=== PATIENT | female | born 1950 | race Caucasian/White ===

== ENCOUNTER 2020-09-04 10:15 | Outpatient (RCR) | payer MEDICARE, SELFPAY ==
[2020-06-14 14:20] VITALS: BP_SYST 90
--- NOTE | 2020-06-14 16:38 | PTOPEVAL ---
Thank you for referring Pilar Knapp to [facility]. Please review, sign, date and return this plan of care LUI. Pt referred to therapy due to s/p left shoulder surgery. She demonstrates impairments consistent with post surgery. She requires additional skilled therapy 2x/wk x 4 wk to address impairments and progress towards goals. I agree with and certify that the following plan of care is medically necessary. Referring Physician Date Referring Provider: Dr. Wes Stacy MD *PT Outpatient Evaluation Start: 06/14/20 14:20 Freq: Status: Active Protocol: Document 06/14/20 14:20 BLAIR (Rec: 06/14/20 15:05 CAP [id number]) Therapy Assessment Status Assessment Status Assessment Status Evaluation Outpatient Past Medical History Past Medical History Source of Past Medical History Patient,Recalled from Previous Visit, Confirmed with Patient /Family Cardiovascular History Hx Hypertension Yes Musculoskeletal History Hx Orthopedic Surgery Yes: left reverse TSA 05/23/20, Hx Other Musculoskeletal Disorders Yes: s/p left shoulder debridement 01/19 Psychosocial History Hx Anxiety Yes Hx Depression Yes Other History Hx Cancer Yes: basal cell Evaluation Information Problem Diagnosis reverse total shoulder arthroplasty-left Onset 2 years Cause fall Additional Evaluation Detail torn RTC, fractured shoulder, dislocated shoulder as a result of a fall 2 years ago. She has had 3 shoulder surgery : s/p ORIF and RTC repair, 1 year later manipulation, then tissue debridement 3 months later Subjective Information She is wearing the shoulder Query Text:As Reported By Patient/ sling most of the day, but has Family been removing the sling towards the end of the day for the past week. Reports increased numbness of right hand due to pressure of sling. She is able to preform her ADL 's indep. She applies the ice daily and will sleep with the ice. She is sleeping on her back due to prefers to sleep on left side. She is not wearing the sling at night. She reports increase
[2020-07-06 11:02] VITALS: BP_SYST 130
--- NOTE | 2020-07-06 14:29 | PTOPEVAL ---
Thank you for referring Pilar Kanpp to [facility]. Please review, sign, date and return this plan of care LUI. Pt has received 7 therapy visits to address left shoulder impairments consistent with shoulder surgery. She is not consistently wearing her sling with daily activities. She is progressing with shoulder range, strength, pain and UE function. Cont PT 2x/wk x 8 wk. I agree with and certify that the following plan of care is medically necessary. Referring Physician Date Referring Provider: Dr. Wes Stacy MD Physical therapy progress note *PT Outpatient Evaluation Start: 06/14/20 14:20 Freq: Status: Active Protocol: Document 07/06/20 11:02 CAP (Rec: 07/06/20 11:30 CAP [id number]) Therapy Assessment Status Assessment Status Assessment Status Re-evaluation Outpatient Past Medical History Past Medical History Source of Past Medical History Patient,Recalled from Previous Visit, Confirmed with Patient /Family Cardiovascular History Hx Hypertension Yes Musculoskeletal History Hx Orthopedic Surgery Yes: left reverse TSA 05/23/20, Hx Other Musculoskeletal Disorders Yes: s/p left shoulder debridement 01/19 Psychosocial History Hx Anxiety Yes Hx Depression Yes Other History Hx Cancer Yes: basal cell Evaluation Information Problem Diagnosis reverse total shoulder arthroplasty-left Onset 2 years Cause fall Additional Evaluation Detail torn RTC, fractured shoulder, dislocated shoulder as a result of a fall 2 years ago. She has had 3 shoulder surgery : s/p ORIF and RTC repair, 1 year later manipulation, then tissue debridement 3 months later Subjective Information Pt arrived to therapy without Query Text:As Reported By Patient/ the sling. She has her MD appt Family on 07/07/20. Reports cont pain with increased activities of director advanced. She performed 50% of the chores without the sling. She reports increased pain of left shoulder with increased activites of daily activities. She is able to preform her ADL 's indep. She is not wearing the sling at night.
--- NOTE | 2020-07-18 09:05 | PCPTNOTE ---
Patient called & cancelled scheduled appointment this date due to not feeling well.
[2020-08-08 09:54] VITALS: BP_SYST 150
--- NOTE | 2020-08-08 13:26 | PTOPEVAL ---
Thank you for referring Pilar Knapp to [facility].? The patient is scheduled to be seen for therapy? 2 x/week for 8 weeks. Please review, sign, date and return this plan of care LUI. I agree with and certify that the following plan of care is medically necessary. Referring Physician Date Referring Provider: Dr. Wes Stacy MD Physical Therapy Progress Note *PT Outpatient Evaluation Start: 06/14/20 14:20 Freq: Status: Active Protocol: Document 08/08/20 09:54 BLAIR (Rec: 08/08/20 10:55 CAP [id number]) Therapy Assessment Status Assessment Status Assessment Status Re-evaluation Evaluation Information Problem Diagnosis reverse total shoulder arthroplasty-left Onset 2 years Cause fall Additional Evaluation Detail torn RTC, fractured shoulder, dislocated shoulder as a result of a fall 2 years ago. She has had 3 shoulder surgery : s/p ORIF and RTC repair, 1 year later manipulation, then tissue debridement 3 months later Subjective Information She reports she is using the Query Text:As Reported By Patient/ arm more with household of Family cleaning, laundry and vacuuming. Increased yardwork of raking and gardening chores . She cont to have difficulty reaching the left arm behind her back for ADL's. She is able to carry only light objects with left UE. Reports difficulty with sleeping due to pain in the shoulder. She uses ice, heat, TENS unit for management of her pain. Her next MD appt 08/18/20 Pain Assessment Timing of Pain Assessment Timing of Pain Assessment Re-assessment Pain Scale Pain Scale Used Numeric (1 - 10) Self Report Pain Assessment Left Shoulder(s) Reported Pain Level 6 Pain Description Aching,Dull Pain Frequency Continuous Lowest Pain Intensity 6 Greatest Pain Intensity 9 Pain Aggravating Factors ADL's,Exercise/Activity, Lifting,Prolonged Position Pain Behaviors None Pain Relief Interventions Used By Exercise,Ice,TENS Patient Pain Score Pain S
--- NOTE | 2020-08-30 10:05 | PCPTNOTE ---
Patient called & cancelled scheduled appointment this date due to sick dog.
--- NOTE | 2020-09-12 12:23 | PCPTNOTE ---
This treatment is being continued on visit number 20 to [id number]. Please see documentation on both accounts to view progress. Completed interventions, outcomes, and problems have been marked as Inactive to facilitate the copying of the Care plan routine for recurring accounts.
== END 2020-09-08 13:31 | disposition home or self-care (01) ==
LOC: ANHPT 10:15
PROVIDERS: PCP Internal Medicine
DX: Z47.31 Aftercare following explantation of shoulder joint prosthesis (principal)
CPT/HCPCS: 97110; 97140; 97162

== ENCOUNTER 2020-10-06 09:00 | Outpatient (RCR) | payer MEDICARE, SELFPAY ==
[2020-09-08 13:31] VITALS: BP_SYST 150
--- NOTE | 2020-09-12 12:29 | PCPTNOTE ---
The treatment documented on this account is a continuation of the treatment documented on visit number 20 from [id number]. Please see documentation on both accounts to view progress. The Plan of Care has been transitioned and updated within the new V#. I have addressed and agree with the discipline specific Problems, Interventions, and Goals for the current certification period. Completed interventions, outcomes, and problems have been marked as Inactive to facilitate the copying of the Care plan routine for recurring accounts.
[2020-09-13 08:02] VITALS: BP_SYST 152
--- NOTE | 2020-09-13 09:18 | PTOPEVAL ---
Thank you for referring Pilar Knapp to [facility].? Pt is making slow progress with left shoulder range and strength. She cont to require additional skilled therapy services to address UE impairments and improve function. The patient is scheduled to be seen for therapy? 2 x/week for 8 weeks. Please review, sign, date and return this plan of care LUI. I agree with and certify that the following plan of care is medically necessary. Referring Physician Date Referring Provider: Dr Wes Stacy MD *PT Outpatient Evaluation Start: 09/12/20 12:23 Freq: Status: Active Protocol: Document 09/13/20 08:02 BLAIR (Rec: 09/13/20 08:58 [facility] [id number]) Therapy Assessment Status Assessment Status Assessment Status Re-evaluation Evaluation Information Problem Diagnosis reverse total shoulder arthroplasty-left Onset 2 years Cause fall Additional Evaluation Detail torn RTC, fractured shoulder, dislocated shoulder as a result of a fall 2 years ago. She has had 3 shoulder surgery : s/p ORIF and RTC repair, 1 year later manipulation, then tissue debridement 3 months later Subjective Information She reports continued pain of Query Text:As Reported By Patient/ the left shoulder with Family increased use of arm with daily activities. She reports cont difficulty and tightness sensation of left upper arm with reaching act. She is able to carry only light objects with left UE. She has difficulty with yardwork. Reports difficulty with sleeping due to pain in the shoulder. Pain Assessment Timing of Pain Assessment Timing of Pain Assessment Assessment Pain Scale Pain Scale Used Numeric (1 - 10) Self Report Pain Assessment Left Shoulder(s) Reported Pain Level 2 Pain Description Tightness Pain Frequency Continuous Lowest Pain Intensity 2 Greatest Pain Intensity 8 Pain Aggravating Factors ADL's,Exercise/Activity, Lifting Pain Relief Interventions Used By Heat,Ice Patient Pain Score Pain Score 2: Self Report Upper Extremity Range of Motion Scapular/ Shoulder Range of Motion Left Shoulder Flexion - Active
--- NOTE | 2020-10-02 07:26 | PCPTNOTE ---
Patient called & cancelled scheduled appointment this date due to being sick.
--- NOTE | 2020-10-06 10:46 | PTOPEVAL ---
PHYSICAL THERAPY DISCHARGE SUMMARY Thank you for referring Pilar Knapp to [facility].? The patient has been seen for 24 therapy?visits for her left shoulder. Please review, sign, date and return this plan of care LUI. I agree with and certify that the following plan of care is medically necessary. Referring Physician Date Attending Provider: Dr. Wes Stacy MD *PT Outpatient Evaluation Start: 09/12/20 12:23 Freq: Status: Active Protocol: Document 10/06/20 10:37 MLV (Rec: 10/06/20 10:46 MLV [id number]) Discharge Discharge Information Problem Subjective Information Patient reports seeing her Query Text:As Reported By Patient/ doctor and was told to stop Family therapy after today's visit. Patient states the MD is happy with her motion and strength and feels her pain may be related to the therapy. Patient is to continue her exercises on her own at home. Patient denies trouble with her current home program. Pain Assessment Timing of Pain Assessment Timing of Pain Assessment Pre-Treatment Pain Scale Pain Scale Used Numeric (1 - 10) Self Report Pain Assessment Left Shoulder(s) Reported Pain Level 3 Pain Description Cramping Pain Frequency Chronic Pain Score Pain Score 3: Self Report Interventions Used Interventions Used By Clinicians Exercise,Ultrasound Pain Relief Interventions Used By Exercise,Heat Patient Upper Extremity Range of Motion General Upper Extremity Range of Motion Gross Upper Extremity Range of Motion left shoulder active motions: Comments flexion 156, abduction 166, ER 56 and IR 75 degrees. Patient is aware of attempting to control scapular movement with elevation, although still having some compensation of movement Upper Extremity Muscle Strength Testing General Upper Extremity Strength Gross Upper Extremity Strength Comments left shoulder ER 4-/5, IR 4/5, elevation 4/5 (isometric testing) Palpation Assessment Palpation Palpation soft tissue tightness at left shoulder has decreased but still present (minimal) Rehab Teaching Rehab Teaching Teaching Topic Rehab Teaching Topic Components Home Program As Pertains To Pain M
== END 2020-10-06 12:10 | disposition home or self-care (01) ==
LOC: ANHPT 09:00
PROVIDERS: PCP Internal Medicine
DX: Z47.89 Encounter for other orthopedic aftercare (principal); Z96.612 Presence of left artificial shoulder joint
CPT/HCPCS: 97035; 97110; 97140

== ENCOUNTER → 2021-08-23 11:42 | Outpatient (CLI) | payer MEDICARE, SELFPAY ==
--- NOTE | ~2021-08-23 | MR_ITS ---
EXAMINATION: MR shoulder LT wo con DATE: 08/23/2021 12:27 INDICATION: Left shoulder pain post total shoulder arthroplasty TECHNIQUE: Magnetic resonance imaging (MRI) of the left shoulder was performed without intravenous co ntrast. Sequences included axial PD-weighted FS FSE, coronal oblique PD-weighted FS FSE, coronal obli que T2-weighted FS FSE, sagittal PD-weighted FS FSE, and sagittal T1-weighted SE. COMPARISON: None. FINDINGS: Large region of metallic magnetic field artifact likely related to reported reverse left total should er arthroplasty which obscures the region of the humeral head and neck, glenoid and immediately surro unding soft tissues including the rotator cuff tendons. Where not obscured the bone marrow signal is normal with no fracture, reactive edema or pathologic marrow replacing process. Mild acromioclavicula r osteoarthritis. The acromion undersurface is curved in morphology (type II). No appreciable joint e ffusion or other abnormal fluid collections. There is relatively uniform mild fatty atrophy of the mu sculature of the left shoulder girdle. No pathologically enlarged axillary lymphadenopathy. IMPRESSION: 1. Limited study due to prominent metallic magnetic field artifact likely related to reported reverse left total shoulder arthroplasty which is otherwise unremarkable aside from relatively uniform mild likely age-related fatty atrophy of the musculature of the shoulder girdle. Reviewed, dictated and finalized at location A. IMPRESSION: 1. Limited study due to prominent metallic magnetic field artifact likely relat ed to reported reverse left total shoulder arthroplasty which is otherwise unre markable aside from relatively uniform mild likely age-related fatty atrophy of the musculature of the shoulder girdle.
== END ==
PROVIDERS: PCP Internal Medicine; Visit Provider Physician Assistant
DX: M25.512 Pain in left shoulder (principal)
CPT/HCPCS: 73221

== ENCOUNTER → 2021-09-08 00:11 | Outpatient (CLI) | payer MEDICARE, SELFPAY ==
[2021-09-08 18:06] LABS: SARS-CoV-2 RNA PCR Negative
== END ==
PROVIDERS: PCP Internal Medicine; Visit Provider Internal Medicine Gastroenterology
DX: Z01.812 Encounter for preprocedural laboratory examination (principal); Z20.822 Contact with and (suspected) exposure to COVID-19
CPT/HCPCS: C9803; U0003; U0005

== ENCOUNTER 2021-09-12 02:26 | Day surgery (SDC) | payer MEDICARE, SELFPAY ==
[2021-08-27 13:10] VITALS: BMI 26.1
--- NOTE | 2021-09-12 09:11 | WPDANESEPPF ---
Anes - Initial Pre Proc Eval Procedure: Operation Date: 09/12/21 10:30 Proposed Procedures p Screening Colonoscopy - Erik Mortensen MD Date/Time: 09/12/21 09:11 Surgeon: Erik Mortnesen MD Pre Op Diagnosis: neoplasm screening z12.11 Patient Data Age: 71 Gender: F Height: 1.63 m Weight: 69 kg Allergies Allergy/AdvReac Type Severity Reaction Status Date / Time No Known Allergies Allergy Verified 09/12/21 09:23 Home Medications Medication Instructions Recorded Confirmed Type cholecalciferol (vitamin D3) 25 1,000 unit PO DAILY 10/08/19 08/27/21 History mcg (1,000 unit) capsule biotin 2,500 mcg capsule 2,500 mcg PO DAILY 04/14/20 08/27/21 History hydrocortisone 2.5 % topical cream 1 applic RECTAL DAILY 04/14/20 09/12/21 History with perineal applicator trazodone 50 mg tablet 50 mg PO .qhs PRN tablet 06/20/21 08/27/21 History ezetimibe 10 mg tablet See Rx Instructions .ROUTE 06/22/21 08/27/21 Rx .COMPLEX #90 tablet rosuvastatin 5 mg tablet 5 mg PO DAILY #90 tablet 06/22/21 08/27/21 Rx Patient hx anesthesia problems: none Family hx anesthesia problems: none Results Review: All pre-operative results and documents have been reviewed as part of the pre-operative evaluation. [facility] Past Medical History Medical History (Updated 09/12/21 @ 09:25 by Erik Mortensen MD) Anxiety Cervicalgia Chronic low back pain without sciatica Essential (primary) hypertension Gastroesophageal reflux disease without esophagitis History of left heart catheterization 2014 Hyperlipidemia Major depressive disorder, recurrent, in remission, unspecified Mixed hyperlipidemia Overweight (BMI 25.0-29.9) Skin cancer Surgical History Surgical History (Updated 03/23/21 @ 10:43 by Cecilia Mcclain MA) H/O hemorrhoidectomy 2014 History of colonoscopy 2016 Hx of shoulder surgery Family History Family History Mother Carcinoma of colon Family history of malignant neoplasm Father Family history of Alzheimer's disease Other Cerebrovascular accident Diabetes mellitus Family history of allergic disorder Hypertension Social History Social History (Updated 06/20/21 @ 10:22 by MARIA EUGENIA Arellano Smoking status: Never smoker Second hand tobacco smoke exposure: Yes Alcohol intake: never Living arrangements: with family Spiritual care concerns: No Anes - Eval Final PreProcedure Day of Procedure 09/12/21 09:11 Patient weight: overweight Heart: regular rate and rhythm Lungs: clear to auscultation and normal air movement Airway: Mallampati scale class II Neurological: alert and oriented Last oral intake: >/= 8 hours ASA classification: II Emergent: no Anesthetic plan: proceed Anesthesia type and monitoring: general GIVS Results Review: All pre-operative results and documents have been reviewed as part of the pre-operative evaluation. Informed Consent: The patient's anesthetic plan and its attendant risks and benefits were discussed with the patient/family/POA. Questions were solicited and answers provided to the satisfaction of the patient/family/POA.
--- NOTE | 2021-09-12 09:24 | P.CONGI_ITS ---
Assessment and Plan Assessment and plan (1) Family history of colon cancer in mother: Code(s): Z80.0 - Family history of malignant neoplasm of digestive organs Status: Acute Assessment and Plan: Patient's mother and maternal aunts have had colon cancer for this reason screening colonoscopy is advised now on at 5 year intervals in the future. Further recommendations will be given after endoscopy. GI Consult Note Consult date/time: 09/12/21 09:24 HPI: Pilar Knapp is a 71 year old female Presents for screening colonoscopy. Patient reports that her current weight appetite and bowel movements are normal. Patient denies abdominal pain. She has had no bleeding. Family history is significant that her mother had colon cancer. Several maternal aunts have also had colon cancer. Patient presents today for screening colonoscopy. Review of Systems Review of Systems: All systems reviewed & are unremarkable except as noted in HPI and below PMFSH Past Medical History Medical History (Updated 09/12/21 @ 09:25 by Erik Mortensen MD) Anxiety Cervicalgia Chronic low back pain without sciatica Essential (primary) hypertension Gastroesophageal reflux disease without esophagitis History of left heart catheterization 2015 Hyperlipidemia Major depressive disorder, recurrent, in remission, unspecified Mixed hyperlipidemia Overweight (BMI 25.0-29.9) Skin cancer Surgical History Surgical History (Updated 03/23/21 @ 10:43 by Cecilia Mcclain MA) H/O hemorrhoidectomy 2014 History of colonoscopy 2016 Hx of shoulder surgery Family History Family History Mother Carcinoma of colon Family history of malignant neoplasm Father Family history of Alzheimer's disease Other Cerebrovascular accident Diabetes mellitus Family history of allergic disorder Hypertension Social History Social History (Updated 06/20/21 @ 10:22 by Isela Chua MA) Smoking status: Never smoker Second hand tobacco smoke exposure: Yes Alcohol intake: never Living arrangements: with family Spiritual care concerns: No Meds Home Medications and Allergies Home Medications Medication Instructions Recorded Confirmed Type cholecalciferol (vitamin D3) 25 1,000 unit PO DAILY 10/08/19 08/27/21 History mcg (1,000 unit) capsule biotin 2,500 mcg capsule 2,500 mcg PO DAILY 04/14/20 08/27/21 History hydrocortisone 2.5 % topical cream 1 applic RECTAL DAILY PRN 04/14/20 06/20/21 History with perineal applicator trazodone 50 mg tablet 50 mg PO .qhs PRN tablet 06/20/21 08/27/21 History ezetimibe 10 mg tablet See Rx Instructions .ROUTE 06/22/21 08/27/21 Rx .COMPLEX #90 tablet rosuvastatin 5 mg tablet 5 mg PO DAILY #90 tablet 06/22/21 08/27/21 Rx Allergies Allergy/AdvReac Type Severity Reaction Status Date / Time No Known Allergies Allergy Verified 09/12/21 09:23 Exam Narrative: Physical exam reveals patient to be alert. Vital signs stable. HEENT exam is unremarkable. Patient is anicteric. Lungs are clear to auscultation and percussion. Heart is without murmur or extra sounds. Abdo karley exam bowel sounds are present soft nontender with no organomegaly. Digital external rectal exam is normal.
[2021-09-12 09:25] VITALS: BP 150/76; PULSE 74; RESP 18; TEMP 36.1; O2SAT 99
[2021-09-12] MEDS: LACTATED RINGERS 1,000 ML 150 ML IV CONT (09:48)
[2021-09-12 10:14] VITALS: BP 122/62; PULSE 68; RESP 22; O2SAT 97
[2021-09-12 10:24] VITALS: BP 129/70; PULSE 68; RESP 27; O2SAT 100
[2021-09-12 10:34] VITALS: BP 145/67; PULSE 68; RESP 22; O2SAT 100
== END 2021-09-12 10:56 | disposition home or self-care (01) ==
PROVIDERS: PCP Internal Medicine; Visit Provider Internal Medicine Gastroenterology
PROC: 0DJD8ZZ Inspection of Lower Intestinal Tract, Via Natural or Artificial Opening Endoscopic (ICD-10-PCS; CPT 45378; principal; 2021-09-12 10:30)
DX: Z12.11 Encounter for screening for malignant neoplasm of colon (principal); K64.8 Other hemorrhoids; K57.30 Diverticulosis of large intestine without perforation or abscess without bleeding; Z80.0 Family history of malignant neoplasm of digestive organs; I10 Essential (primary) hypertension; K21.9 Gastro-esophageal reflux disease without esophagitis; E78.2 Mixed hyperlipidemia; F41.9 Anxiety disorder, unspecified; F33.40 Major depressive disorder, recurrent, in remission, unspecified
CPT/HCPCS: G0105; C9803; J7120; U0003; U0005

== ENCOUNTER → 2021-09-13 13:27 | Outpatient (CLI) | payer MEDICARE, SELFPAY ==
--- NOTE | ~2021-09-13 | XR_ITS ---
XR fl inj shoulder LT - MR/CT DATE: 09/13/2021 15:18 INDICATION: Left shoulder pain TECHNIQUE: The purpose of the procedure, technique and potential complications including bleeding and infection were described. The patient indicated understanding and gave consent. [employer] 5 view left shoulder radiograph examination was performed. The skin over the anterior aspect of the left shoulder was prepared with sterile Betadine. Sterile dr ape was applied. 1% lidocaine local anesthetic was administered. A 20-gauge spinal needle was introduced into the shoulder joint area at the reverse total glenohumera l arthroplasty. 12 cc contrast material was injected with periodic fluoroscopy. Repeat five-view right shoulder radiographic series was performed. CT examination of the shoulder was subsequently performed and is reported separately. COMPARISON: None FINDINGS: Status post reverse right glenohumeral arthroplasty, without evidence of fracture or disloc ation or loosening. No periosteal reaction or bone destruction is evident. There is diffuse osteopeni a. Much of the radiopaque contrast material is extravasated into the subacromial subdeltoid bursa area. IMPRESSION: Status post reverse glenohumeral arthroplasty Osteopenia Reviewed, dictated and finalized at Location [facility]. Reviewed, dictated and finalized at location A.
--- NOTE | ~2021-09-13 | CT_ITS ---
EXAMINATION: CT shoulder LT w con DATE: 09/13/2021 14:58 INDICATION: Persistent left shoulder pain for 2 months post left reversed total shoulder arthroplasty TECHNIQUE: High resolution computed tomography (CT) of the shoulder was performed without intravenous contrast but following intra-articular administration of iodinated contrast. Details of the joint in jection have been dictated separately. Additional sagittal and coronal reconstructions were performed . Automated exposure control and iterative reconstruction technique were employed. The dose-length pr oduct was 482.92 mGy-cm. COMPARISON: Radiographs dated 09/13/2021 FINDINGS: There is a reverse right total shoulder arthroplasty which appears well seated in near-anatomic align ment. Small osteophyte along the inferior neck the glenoid which could be related to some impingement with the articular rim of the humeral component. No evident periprosthetic lucency or evident extens ion of contrast along the bone component interfaces to suggest loosening. No fracture. Small heteroto pic ossicle at the posterolateral margin of the articulation of the glenoid and humeral components. T he majority of the injected contrast has extravasated into the subacromial/subdeltoid bursa and overl jayjay deltoid muscle. The bicipital groove is empty suggesting either tear or tenotomy and distal retr action. Mild fatty atrophy of the rotator cuff muscles. No pathologically enlarged left axillary or h ilar lymphadenopathy. Peripherally calcified left breast implant. Visualized portion of the left lung is clear. IMPRESSION: 1. Expected appearance post reverse left total shoulder arthroplasty. No evident fracture or loosenin g. 2. Small osteophyte along the inferior neck of the glenoid which could be related to some impingement with the rim of the humeral component. Reviewed, dictated and finalized at location A. IMPRESSION: 1. Expected appearance post reverse left total shoulder arthroplasty. No eviden t fracture or loosening. 2. Small osteophyte along the inferior neck of the glenoid which could be relat ed to some impingement with the rim of the humeral component.
== END ==
PROVIDERS: PCP Internal Medicine; Visit Provider Physician Assistant
DX: M25.512 Pain in left shoulder (principal); Z96.612 Presence of left artificial shoulder joint; G89.18 Other acute postprocedural pain
CPT/HCPCS: 23350; 73201; Q9966

== ENCOUNTER → 2022-01-15 02:19 | Outpatient (CLI) | payer MEDICARE, SELFPAY ==
[2022-01-15 11:29] LABS: Influenza A QL RT-PCR Negative (Negative); Influenza B QL RT-PCR Negative (Negative); SARS-CoV-2 RNA PCR Positive
== END ==
PROVIDERS: PCP Internal Medicine; Visit Provider Internal Medicine
DX: R68.89 Other general symptoms and signs (principal); U07.1 COVID-19
CPT/HCPCS: 87502; C9803; U0003; U0005

== ENCOUNTER 2024-03-12 10:09 | Outpatient (CLI) | payer MEDICARE, SELFPAY ==
--- NOTE | ~2024-03-12 | DEXA_ITS ---
Bone Density Report Name: MARIA R MURDOCK Age: 74 Sex: Female Ethnicity: White Date of : 1950 Indication: osteopenia; postmenopausal Referring Provider: ROSA KABA Study: Bone densitometry was performed. Exam Date: March 12, 2024 Accession number: [id number] Bone Density: Region BMD T-score Z-score Classification AP Spine (L1-L4) 0.794 -2.3 0.1 Osteopenia Femoral Neck (Left) 0.734 -1.0 1.0 Normal Total Hip (Left) 0.724 -1.8 0.0 Osteopenia Femoral Neck (Right) 0.703 -1.3 0.8 Osteopenia Total Hip (Right) 0.745 -1.6 0.2 Osteopenia Total Hip Mean 0.735 -1.7 0.1 Osteopenia World Health Organization criteria for BMD impression classify patients as: Normal (T-score at or above -1.0), Osteopenia (T-score between -1.0 and -2.5), or Osteoporosis (T-score at or below -2.5). 10-year Fracture Risk(1): Major Osteoporotic Fracture 11% Hip Fracture 1.9% Reported Risk Factors: [place] (), Neck BMD=0.703, BMI=27.6 (1) FRAX(R) Version 3.08. Fracture probability calculated for an untreated patient. Fracture probability may be lower if the patient has received treatment. Previous Exams: Region Exam Age BMD T-score BMD Change BMD Change Date g/cm2 vs Baseline vs Previous AP Spine(L1-L4) 03/12/2024 74 0.794 -2.3 -0.026* -0.014 06/11/2019 69 0.808 -2.2 -0.012 -0.012 05/17/2013 63 0.820 -2.1 Total Hip(Left) 03/12/2024 74 0.724 -1.8 -0.088* -0.054* 06/11/2019 69 0.778 -1.3 -0.034* -0.034* 05/17/2013 63 0.812 -1.1 Total Hip(Right) 03/12/2024 74 0.745 -1.6 -0.086* -0.024 06/11/2019 69 0.769 -1.4 -0.062* -0.062* 05/17/2013 63 0.831 -0.9 *Denotes significance at 95% confidence level, LSC for AP Spine = 0.022 g/cm2, LSC for Total Hip = 0.027 g/cm2 Clinical Information Provided by Patient: Has used the following medications: Vitamin D, Calcium Patient maximum height was 65 Menopause Age: 55 No regular weight bearing exercise Drinks caffeinated beverages Onset of menses at age 14 Number of children 0 Impression: The patient has low bone mass, based on the Total Spine T-score. The patient has an estimated ten-year risk of hip fracture of 1.9% and an estimated ten-year risk of major fracture of 11%, based on the WHO FRAX algorithm. The BMD for the Total Hip(Left) decreased, changing by -0.054 since the l
== END 2024-03-12 10:10 ==
PROVIDERS: PCP Family Medicine; Visit Provider Family Medicine
DX: Z78.0 Asymptomatic menopausal state (principal); M85.88 Other specified disorders of bone density and structure, other site; M85.852 Other specified disorders of bone density and structure, left thigh; M85.851 Other specified disorders of bone density and structure, right thigh
CPT/HCPCS: 77080

== ENCOUNTER 2025-02-28 14:19 | Outpatient (CLI) | payer MEDICARE, SELFPAY ==
--- NOTE | ~2025-02-28 | XR_ITS ---
EXAMINATION: XR sacroiliac joints min 3V DATE: 02/28/2025 14:46 INDICATION: Pain of the left sacroiliac joint. TECHNIQUE: 3 views of the sacroiliac joints were obtained. COMPARISON: None. FINDINGS: Alignment is normal. No fracture. There is mild osteoarthritis of the sacroiliac joints. IMPRESSION: 1. Mild osteoarthritis of the sacroiliac joints. Reviewed, dictated and finalized at location A.
== END 2025-02-28 14:20 | disposition home or self-care (01) ==
PROVIDERS: PCP Family Medicine; Visit Provider Family Medicine
DX: M46.1 Sacroiliitis, not elsewhere classified (principal); M53.3 Sacrococcygeal disorders, not elsewhere classified
CPT/HCPCS: 72202